=== PATIENT | male | born 1985 | race Caucasian/White ===

== ENCOUNTER 2021-09-10 18:32 | Emergency (ER) | payer OTHER, BC ==
--- NOTE | 2021-09-10 19:43 | CR ---
INDICATION: Foot injury from fall on ice TECHNIQUE: Foot radiograph 2 views right COMPARISON: None FINDINGS: Bone: A posterior tibial malleolar fracture and fibular fracture present and described on separate report. No acute osseous injuries or aggressive bone lesions are identified in the foot. Joint: The visualized hindfoot, midfoot, and forefoot joints are unremarkable in appearance. No significant ankle effusion is seen. Soft tissue: Unremarkable. No radiopaque foreign bodies are seen. IMPRESSIONS: 1. No acute osseous injuries or abnormalities are noted the foot. 2. A posterior tibial malleolar fracture and fibular fracture present and described on separate report. Dictated by Colten Ceja MD @ 09/10/2021 7:41:31 PM Dictated by: Colten eCja MD @ 09/10/2021 19:41:35 (Electronically Signed)
[2021-09-10] MEDS ORDERED: Acetaminophen/oxyCODONE 325-5 MG Tab PO ONE (20:08)
[2021-09-10] MEDS ORDERED: Ketorolac 30 MG/ML SDV IM ONE (20:08)
--- NOTE | 2021-09-10 20:19 | CR ---
Indication: Pain after fall on ice Technique: Three views right ankle Comparison: None Findings: Bones: Acute fracture of the distal fibula with mildly displaced butterfly fragment. Minimally displaced posterior malleolus fracture. Small posterior calcaneal enthesophyte. Joint spaces: Unremarkable. Soft tissues: Soft tissue swelling around the ankle. Impression: Acute fracture of the distal fibula with mildly displaced butterfly fragment. Minimally displaced posterior malleolus fracture. Dictated by Selma Reid MD @ 09/10/2021 8:18:10 PM (Electronically Signed)
--- NOTE | 2021-09-10 20:35 | EDM.PDOC ---
ED HPI GENERAL MEDICAL PROBLEM - General Chief Complaint: Lower Extremity Injury/Pain Stated Complaint: INJURY RT LEG Time Seen by Provider: 09/10/21 18:42 Source of Information: Reports: Patient History Limitations: Reports: No Limitations - History of Present Illness INITIAL COMMENTS - FREE TEXT/NARRATIVE: HISTORY AND PHYSICAL: History of present illness: Patient is a 36-year-old male that presents to the ED complaining of right ankle injury that occurred just prior to arrival to the ED. Patient reports [place] the [place]. When getting his truck hooked up to be towed, he slipped on the ice and fell, landing on his right side. Patient reports "right foot was turned sideways before he popped it into place and continued to move his truck". He states he had a lot of adrenaline which is the only reason he was able to continue but states he cannot bear weight otherwise. Patient reports the pain as sharp and located over the right fibula at midshaft. Patient denies any other injuries or loss of conscious after the fall. Patient denies fever, chills, chest pain, shortness of breath, or cough. Denies headache, neck stiff ness, change in vision, syncope, or near syncope. Denies nausea, vomiting, abdominal pain, diarrhea, constipation, or dysuria. Has not noted any blood in urine or stool. Patient has been eating and drinking appropriately. Review of systems: As per history of present illness and below otherwise all systems reviewed and negative. Past medical history: As per history of present illness and as reviewed below otherwise noncontributory. Surgical history: As per history of present illness and as reviewed below otherwise noncontributory. Social history: See social history for further information Family history: As per history of present illness and as reviewed below otherwise noncontributory. Physical exam: General: Patient is alert, oriented, and in no acute distress. Patient sitting comfortably on exam table. Vitals stable and reviewed by me. HEENT: Atraumatic, normocephalic, pupils equal and reactive bilaterally, negative for conjunctival pallor or scleral icterus, mucous membranes moist, throat clear, neck supple, nontender, trachea midline. No drooling or trismus noted. No meningeal signs. No hot potato voice noted. Lungs: Clear to auscultation, breath sounds equal bilaterally, chest nontender. Heart: S1S2, regular rate and rhythm without overt murmur Abdomen: Soft, nondistended, nontender. Negative for masses or hepatosplenomegaly. Negative for costovertebral tenderness. Pelvis: Stable nontender. Genitourinary: Deferred. Rectal: Deferred. Skin: Ecchymosis of medial right ankle and right anterior foot. Otherwise, intact, warm, dry. No lesions or rashes noted. Extremities: Right ankle is edematous worse at the medial malleolus. Tenderness at the anterior ankle and lateral fibular shaft to palpation. Patient has full range of motion of the right hip knee and digits of the right lower extremity but has limited range of motion of the right ankle due to pain. Dorsalis pedis and posterior tibial pulses are intact via Doppler as edema limited exam of the ankle. Capillary refill less than 2 seconds of the right lower extremity. All compartments are soft of the right lower extremity. Intact sensation to light and deep touch of the complete right lower extremity. Otherwise, atraumatic, negative for cords or calf pain. Neurovascular unremarkable. Neuro: Awake, alert, oriented. Cranial nerves II through XII unremarkable. Cerebellum unremarkable. Motor and sensory unremarkable throughout. Exam nonfocal. Superficial touch intact for right foot and toes. Medical Decision Making: Dr. Monzon at bedside and assisting with reduction. Signs and symptoms that would prompt return to the ED thoroughly discussed with patient. Discussed importance for follow-up with an orthopedic provider. See procedure note below for fracture reduction. Voices understanding and is agreeable to plan of care. Denies any further questions or concerns at this time. Diagnostics: Tib fib/ foot RT Therapeutics: Percocet tab, Zofran, Dilaudid, Ativan, Posterior short splint placed by nursing staff, fracture reduction Prescription: Percocet (20 tabs) Impression: Distal fibula fracture, right Posterior malleolus fracture, right Plan: 1. Rest, ice, elevate the affected extremity. You can apply ice 15 minutes on, 15 minutes off. Use crutches and keep the splint on until follow-up with an orthopedic provider. Do not bear any weight until follow-up with orthopedic provider for further instruction as discussed. 2. Tylenol and/or Ibuprofen as directed for pain management or discomfort. Take medication as prescribed. Caution with Percocet as this medication does cause drowsiness and sedation. Caution when taking this medication outside of the home. Do not operate any equipment or drive any vehicles when on this medication. Percocet also contains a Tylenol component. Take this into consideration with any additional Tylenol dosing as discussed. 3. Follow up with the Orthopedic provider as discussed. Return to the ED as needed and as discussed. Definitive disposition and diagnosis as appropriate pending reevaluation and review of above. Right Ankle Pain Score (Numeric/FACES): 4 - Related Data Allergies Allergy/AdvReac Type Severity Reaction Status Date / Time acetaminophen [From Vicodin] Allergy Other Verified 09/10/21 18:38 diphenhydramine Allergy Other Verified 09/10/21 18:38 [From Benadryl] hydrocodone [From Vicodin] Allergy Other Verified 09/10/21 18:38 Home Meds: Home Meds . [No Known Home Meds] 09/10/21 [History] Past Medical History - Past Health History Medical/Surgical History: Denies Medical/Surgical History Social & Family History - Tobacco Use Tobacco Use Status *Q: Never Tobacco User - Caffeine Use Caffeine Use: Reports: None - Recreational Drug Use Recreational Drug Use: No Review of Systems - Review of Systems Review Of Systems: Comprehensive ROS is negative, except as noted in HPI. ED EXAM, GENERAL - Physical Exam Exam: See Below (see dictation) ED TRAUMA EXTREMITY PROCEDURES - Joint Reduction Right Ankle Sedation: Conscious Sedation Pre-Procedure NV Status: Normal Post-Procedure NV Status: Normal Technique: Traction/Counter Traction Number of Attempts: 2 Post-Reduction Imaging: Completely Reduced, Fracture Seen Joint Reduction Complications: No Course - Vital Signs Last Recorded V/S: Last Vital Signs Temp 98.2 F 09/10/21 18:39 Pulse 102 H 09/10/21 18:39 Resp 17 09/10/21 18:39 BP 140/86 09/10/21 18:39 Pulse Ox 97 09/10/21 18:39 - Orders/Labs/Meds Orders: Active Orders 24 hr Category Date Time Status Sodium Chloride 0.9% [Saline Flush] Med 09/10/21 21:06 Active 10 ml FLUSH ASDIRECTED PRN Sodium Chloride 0.9% [Saline Flush] Med 09/10/21 21:06 Active 2.5 ml FLUSH ASDIRECTED PRN DME for Discharge [COMM] Stat Oth 12/29/21 22:05 Ordered Saline Lock Insert [OM.PC] Stat Oth 09/10/21 21:06 Ordered Medication Orders Sodium Chloride (Sodium Chloride 0.9% 10 Ml Syringe) 10 ml FLUSH ASDIRECTED PRN PRN Reason: Keep Vein Open Sodium Chloride (Sodium Chloride 0.9% 2.5 Ml Syringe) 2.5 ml FLUSH ASDIRECTED PRN PRN Reason: Keep Vein Open Meds: Medications Generic Name Dose Route Start Last Admin Trade Name Freq PRN Reason Stop Dose Admin Sodium Chloride 10 ml 09/10/21 21:06 Sodium Chloride 0.9% 10 Ml Syringe FLUSH ASDIRECTED PRN Keep Vein Open Sodium Chloride 2.5 ml 09/10/21 21:06 Sodium Chloride 0.9% 2.5 Ml Syringe FLUSH ASDIRECTED PRN Keep Vein Open Discontinued Medications Generic Name Dose Route Start Last Admin Trade Name Freq PRN Reason Stop Dose Admin Hydromorphone HCl 1 mg 09/10/21 21:08 09/10/21 21:32 Hydromorphone 1 Mg/Ml Syringe IVPUSH 09/10/21 21:09 1 mg ONETIME ONE Administration Ketorolac Tromethamine 30 mg 09/10/21 20:08 09/10/21 20:32 Ketorolac 30 Mg/Ml Sdv IM 09/10/21 20:09 30 mg ONETIME ONE Administration Lorazepam Confirm 09/10/21 21:43 Lorazepam 2 Mg/Ml Sdv Administered 09/10/21 21:44 Dose 2 mg .ROUTE .STK-MED ONE Lorazepam 1 mg 09/10/21 21:58 09/10/21 22:01 Lorazepam 2 Mg/Ml Sdv IVPUSH 09/10/21 21:59 1 mg ONETIME ONE Administration Ondansetron HCl 4 mg 09/10/21 21:08 09/10/21 21:32 Ondansetron 4 Mg/2 Ml Sdv IVPUSH 09/10/21 21:09 4 mg ONETIME ONE Administration Oxycodone/Acetaminophen 1 tab 09/10/21 20:08 09/10/21 20:33 Acetaminophen/Oxycodone 325-5 Mg Tab PO 09/10/21 20:09 1 tab ONETIME ONE Administration Departure - Departure Time of Disposition: 22:01 Disposition: Home, Self-Care 01 Clinical Impression: Fracture of distal fibula, Fracture, posterior malleolus - Discharge Information Instructions: Ankle Fracture Referrals: PCP,None [Primary Care Provider] - Forms: ED Department Discharge Additional Instructions: The following information is given to patients seen in the emergency department who are being discharged to home. This information is to outline your options for follow-up care. We provide all patients seen in our emergency department with a follow-up referral. The need for follow-up, as well as the timing and circumstances, are variable depending upon the specifics of your emergency department visit. If you don't have a primary care physician on staff, we will provide you with a referral. We always advise you to contact your personal physician following an emergency department visit to inform them of the circumstance of the visit and for follow-up with them and/or the need for any referrals to a consulting specialist. The emergency department will also refer you to a specialist when appropriate. This referral assures that you have the opportunity for follow-up care with a specialist. All of these measure are taken in an effort to provide you with optimal care, which includes your follow-up. Under all circumstances we always encourage you to contact your private physician who remains a resource for coordinating your care. When calling for follow-up care, please make the office aware that this follow-up is from your recent emergency room visit. If for any reason you are refused follow-up, please contact the [facility] Emergency Department at and asked to speak to the emergency department charge nurse. [facility] [address], [address] [place] [address] 1. Rest, ice, elevate the affected extremity. You can apply ice 15 minutes on, 15 minutes off. Use crutches and keep the splint on until follow-up with an orthopedic provider. Do not bear any weight until follow-up with orthopedic provider for further instruction as discussed. 2. Tylenol and/or Ibuprofen as directed for pain management or discomfort. Take medication as prescribed. Caution with Percocet as this medication does cause drowsiness and sedation. Caution when taking this medication outside of the home. Do not operate any equipment or drive any vehicles when on this medication. Percocet also contains a Tylenol component. Take this into consideration with any additional Tylenol dosing as discussed. 3. Follow up with the Orthopedic provider as discussed. Return to the ED as needed and as discussed. Sepsis Event Note (ED) - Evaluation Sepsis Screening Result: No Definite Risk - Focused Exam Vital Signs: Vital Signs Temp Pulse Resp BP Pulse Ox 09/10/21 18:39 98.2 F 102 H 17 140/86 97 - My Orders Last 24 Hours: My Active Orders 09/10/21 21:06 Sodium Chloride 0.9% [Saline Flush] 10 ml FLUSH ASDIRECTED PRN Sodium Chloride 0.9% [Saline Flush] 2.5 ml FLUSH ASDIRECTED PRN Saline Lock Insert [OM.PC] Stat 09/10/21 22:05 DME for Discharge [COMM] Stat - Assessment/Plan Last 24 Hours: My Active Orders 09/10/21 21:06 Sodium Chloride 0.9% [Saline Flush] 10 ml FLUSH ASDIRECTED PRN Sodium Chloride 0.9% [Saline Flush] 2.5 ml FLUSH ASDIRECTED PRN Saline Lock Insert [OM.PC] Stat 09/10/21 22:05 DME for Discharge [COMM] Stat
[2021-09-10] MEDS ORDERED: Sodium Chloride 0.9% 10 ML Syringe FLUSH PRN (21:06)
[2021-09-10] MEDS ORDERED: Sodium Chloride 0.9% 2.5 ML Syringe FLUSH PRN (21:06)
[2021-09-10] MEDS ORDERED: Ondansetron 4 MG/2 ML SDV IVPUSH ONE (21:08)
[2021-09-10] MEDS ORDERED: HYDROmorphone 1 MG/ML Syringe IVPUSH ONE (21:08)
[2021-09-10] MEDS ORDERED: LORazepam 2 MG/ML SDV ONE (21:43)
[2021-09-10] MEDS ORDERED: LORazepam 2 MG/ML SDV IVPUSH ONE (21:58)
--- NOTE | 2021-09-10 22:27 | CR ---
INDICATION: Ankle fracture status post reduction TECHNIQUE: Ankle radiograph 2 views right COMPARISON: 09/10/2021 FINDINGS: Bone: Displaced fracture of the distal fibula and posterior tibial malleolus are noted without interval change. Joint: The ankle mortise joint and the visualized hindfoot joints are unremarkable in appearance. No significant ankle effusion is seen. Soft tissue: An overlying posterior splint is noted which limits evaluation of the underlying osseous structures and soft tissues. No radiopaque foreign bodies are seen. IMPRESSION: 1. Displaced fracture of the distal fibula and posterior tibial malleolus are noted without interval change. Dictated by Colten Ceja MD @ 09/10/2021 10:25:55 PM Dictated by: Colten Ceja MD @ 09/10/2021 22:26:01 (Electronically Signed)
== END 2021-09-10 20:44 | disposition home or self-care (01) ==
LOC: MW.ED 18:32
DX: S82.831A Other fracture of upper and lower end of right fibula, initial encounter for closed fracture (principal); Z88.5 Allergy status to narcotic agent; Z88.8 Allergy status to other drugs, medicaments and biological substances; W00.0XXA Fall on same level due to ice and snow, initial encounter
CPT/HCPCS: 27768; 73600; 73610; 73620; 96372; 99283; A9270; J1170; J1885; J2060; J2405